=== PATIENT | female | born 1990 | race American Indian/Alaskan Native ===

== ENCOUNTER 2017-07-03 00:40 | Emergency (ER) | payer SELFPAY ==
[2017-07-03 01:07] VITALS: BP 125/77
[2017-07-03 02:07] LABS: Amorphous Crystals,Urine 1+; Bilirubin,Urine NEG (Negative); Blood,Urine NEG (Negative); Color,Urine Yellow (Yellow); Mucus,Urine FEW /HPF; Nitrite,Urine NEG (Negative); Protein,Urine <15 mg/dL mg/dL (Negative)
[2017-07-03 02:09] LABS: HCG Qualitative,Urine Negative (Negative)
== END 2017-07-03 04:30 | disposition left against medical advice (07) ==
LOC: ED 00:40
DX: H57.10 Ocular pain, unspecified eye (principal); Z53.21 Procedure and treatment not carried out due to patient leaving prior to being seen by health care provider
CPT/HCPCS: 81001; 81025

== ENCOUNTER 2017-07-03 21:21 | Emergency (ER) | payer SELFPAY ==
[2017-07-03 21:32] VITALS: BP 120/72
--- NOTE | 2017-07-04 01:20 | Emergency Department Report ---
HPI - General Chief Complaint: Allergic Reaction Time Seen by Provider: 07/04/17 01:16 - HPI HPI: 27-year-old female comes in stating she's had been had an facial irritation 1 day after using a new soap call black silk both Lavender. She also reports vaginal discharge for a few days. She denies any fever chills no nausea no vomiting she did not denies any blisters. He reports she was using Dove soap prior to trying the black soap which did fine for her skin. She reports she's been putting petroleum jelly on her face which helps with the irritation. ED Past Medical Hx - Past Medical History Previous Medical History?: Yes Hx Asthma: Yes - Surgical History Past Surgical History?: No - Social History Smoking Status: Current Every Day Smoker Substance Use Type: None ED Review of Systems ROS: Stated complaint: EYE IRRITATION Other details as noted in HPI Constitutional: denies: chills, fever Eyes: denies: eye pain, eye discharge, vision change ENT: denies: ear pain, throat pain Respiratory: denies: cough, shortness of breath, wheezing Cardiovascular: denies: chest pain, palpitations Endocrine: no symptoms reported Gastrointestinal: denies: abdominal pain, nausea, diarrhea Genitourinary: denies: urgency, dysuria, discharge Skin: other (irritation to face) Psychiatric: denies: anxiety, depression Hematological/Lymphatic: denies: easy bleeding, easy bruising Physical Exam - Physical Exam Vital Signs: Vital Signs 07/03/17 21:26 Temperature 98.4 F Pulse Rate 85 Respiratory 20 Rate Blood Pressure 120/72 O2 Sat by Pulse 100 Oximetry Physical Exam: GENERAL: Alert and oriented x3, no apparent distress, Normal Gait, atraumatic. HEAD: Head is normocephalic and a-traumatic. EYES: Extra ocular muscles are intact. Pupils are equal, round, and reactive to light and accommodation. EARS: symetrical, atraumatic, non tender, ear canal clear and moderate cerumen, tympanic membrance non inflamed. gross auditory nml bilaterally. bilaterally NEUROLOGIC: No focal Deficit, Cranial nerves II through XII are grossly intact. No loss of sensation, No facial droop, Negative rhomberg. PSYCHIATRIC: Mood is congruent with affect, denies suicidal or homicidal ideations. SKIN: Warm and dry, fine rash with no tenderness to palpate. ED Course Vital Signs 07/03/17 21:26 Temperature 98.4 F Pulse Rate 85 Respiratory 20 Rate Blood Pressure 120/72 O2 Sat by Pulse 100 Oximetry ED Medical Decision Making - Medical Decision Making Since been evaluated by this provider [facility]. I discussed with patient that I would discontinue with the black lavender soap I will recommend for her to use a non-hypokinetic cleaning products. I discussed that she can have her vaginal discharge evaluated at the health Department patient verbalized understanding. I also stated that I will [facility] care. Critical care attestation.: If time is entered above; I have spent that time in minutes in the direct care of this critically ill patient, excluding procedure time. ED Disposition Clinical Impression: Skin irritation due to topical agent Disposition: DC-01 TO HOME OR SELFCARE Is pt being admited?: No Does the pt Need Aspirin: No Condition: Stable Additional Instructions: Please discontinue the new use in the black lavender soap. You can try product that is more hypergenic I also recommend Cetaphil or Cerva. Referrals: JAMES LOUISE MD [Primary Care Provider] - 3-5 Days [facility] [Outside] - 3-5 Days [facility] [Outside] - [facility] - [facility] Days
== END 2017-07-04 01:30 | disposition home or self-care (01) ==
LOC: ED 21:21
DX: L27.0 Generalized skin eruption due to drugs and medicaments taken internally (principal); J45.909 Unspecified asthma, uncomplicated; F17.200 Nicotine dependence, unspecified, uncomplicated
CPT/HCPCS: 99282